=== PATIENT | male | born 1945 | race Caucasian/White ===

== ENCOUNTER → 2018-04-27 | Outpatient (CLI) | payer MEDICARE ==
--- NOTE | 2018-04-27 09:09 | US ---
EXAMINATION TYPE: US duplex aorta DATE OF EXAM: 04/27/2018 COMPARISON: NONE CLINICAL HISTORY: Z13.6 SCREEN FOR CARDIOVASCULAR DISORDER. Pt states screening, has no complaints at this time EXAM MEASUREMENTS: Abdominal Aorta: Proximal: 2.2 x 2.3 cm Mid: 1.9 x 2.1 cm Distal: 2.4 x 2.1 cm Bifurcation: TYLER: 1.0 x 1.1 cm YANELIS: 1.1 x 1.0 cm Ectatic, upper limits of normal for measurements without evidence of AAA/ Wall calcifications visua lized IMPRESSION: 1. Distal abdominal aorta is ectatic with slightly more prominence in the mid abdominal aorta. Maximu m distal abdominal aorta AP diameter is 2.4 cm
--- NOTE | 2018-04-27 10:20 | US ---
EXAMINATION TYPE: US carotid duplex BILAT DATE OF EXAM: 04/27/2018 COMPARISON: US CLINICAL HISTORY: R09.89 SIGNS INVOLVING THE CIRCULATORY AND RESPITORY SYSTEMS. Pt states no complain ts at this time EXAM MEASUREMENTS: RIGHT: Peak Systolic Velocity (PSV) cm/sec ----- Right CCA: 63.4 ----- Right ICA: 117.4 ----- Right ECA: 308.4 ICA/CCA ratio: 1.9 RIGHT: End Diastole cm/sec ----- Right CCA: 19.7 ----- Right ICA: 42.2 ----- Right ECA: 28.0 LEFT: Peak Systolic Velocity (PSV) cm/sec ----- Left CCA: 101.8 ----- Left ICA: 103.1 ----- Left ECA: 170.7 ICA/CCA ratio: 1.0 LEFT: End Diastole cm/sec ----- Left CCA: 24.1 ----- Left ICA: 39.6 ----- Left ECA: 17.0 VERTEBRALS (direction of flow): Right Vertebral: Antegrade Left Vertebral: Antegrade Rhythm: Arrhythmia Elevated velocities bilateral ECA's, otherwise no significant stenosis seen bilateral ICA's Mild plaquing in some mild intimal thickening is present. IMPRESSION: 1. Internal carotid artery velocities are at the upper limits of normal. Significant flow-limiting st enosis is not evident. Criteria for Assigning % of Stenosis / Diameter reduction (Estimation based on the indirect measurements of the internal carotid artery velocities (ICA PSV). 1. Normal (no stenosis)=ICA PSV < 125 cm/s: ratio < 2.0: ICA EDV<40 cm/s. 2. Less than 50% stenosis=ICA PSV < 125 cm/s: ratio < 2.0: ICA EDV<40 cm/s. 3. 50 to 69% stenosis=ICA PSV of 125 to 230 cm/s: ration 2.0 ? 4.0: ICA EDV 40-100 cm/s. 4. Greater than 70% stenosis to near occlusion= ICA PSV > 230 cm/s: ratio > 4.0: ICA EDV > 100 cm/s. 5. Near occlusion= ICA PSV velocities may be low or undetectable: variable ratio and ICA EDV. 6. Total occlusion=unable to detect flow.
== END | disposition home or self-care (01) ==
LOC: RADUSWWP 07:36
PROVIDERS: ATTEND Thoracic Surgery (Cardiothoracic Vascular Surgery)
DX: I77.811 Abdominal aortic ectasia (principal); Z13.6 Encounter for screening for cardiovascular disorders; R09.89 Other specified symptoms and signs involving the circulatory and respiratory systems
CPT/HCPCS: 93880; 93979

== ENCOUNTER → 2018-11-15 | Outpatient (CLI) | payer MEDICARE ==
--- NOTE | 2018-11-15 14:06 | US ---
EXAMINATION TYPE: US kidneys/renal and bladder DATE OF EXAM: 11/15/2018 COMPARISON: NONE CLINICAL HISTORY: N18.3 CKD Stage 3. Large body habitus EXAM MEASUREMENTS: Right Kidney: 9.1 x 4.3 x4.9 cm Left Kidney: 9.4 x 4.4 x 4.3 cm Post Void Residual Volume: 20.1 mL Right Kidney: small probable cortical cyst 0.8 x 0.9 x 0.6 cm Left Kidney: small probable cortical cyst 0.6 x 0.6 x 0.7 cm Bladder: wnl Bilateral Jets seen: Yes Normal Post Void Residual: Yes There is no evidence for hydronephrosis at this point in time. No nephrolithiasis is seen. The urina ry bladder is anechoic. Bilateral ureteral jets are seen. IMPRESSION: There are too small to accurately characterize bilateral subcentimeter renal lesions that likely repr esent small cysts. No hydronephrosis or nephrolithiasis.
== END | disposition home or self-care (01) ==
LOC: RADUSWWP 13:14
PROVIDERS: ATTEND Family Medicine
DX: N28.89 Other specified disorders of kidney and ureter (principal); N18.3 Chronic kidney disease, stage 3 (moderate)
CPT/HCPCS: 76770

== ENCOUNTER → 2019-01-11 | Outpatient (CLI) | payer MEDICARE ==
--- NOTE | 2019-01-12 13:51 | US ---
EXAMINATION TYPE: US carotid duplex BILAT DATE OF EXAM: 01/11/2019 COMPARISON: NONE CLINICAL HISTORY: R09.89 Carotid Bruit. EXAM MEASUREMENTS: RIGHT: Peak Systolic Velocity (PSV) cm/sec ----- Right CCA: 74.7 ----- Right ICA: 85.1 ----- Right ECA: 377.3 ICA/CCA ratio: 1.1 RIGHT: End Diastole cm/sec ----- Right CCA: 15.4 ----- Right ICA: 13.6 ----- Right ECA: 27.5 LEFT: Peak Systolic Velocity (PSV) cm/sec ----- Left CCA: 76.4 ----- Left ICA: 77.9 ----- Left ECA: 173.8 ICA/CCA ratio: 1.0 LEFT: End Diastole cm/sec ----- Left CCA: 15.7 ----- Left ICA: 17.9 ----- Left ECA: 11.6 VERTEBRALS (direction of flow): Right Vertebral: Antegrade Left Vertebral: Antegrade Rhythm: Normal Moderate atherosclerotic changes with no significant velocity increases in bilateral ICA's. Bilateral ECA's show velocity increase, worse on right. IMPRESSION: Mild degree of grayscale atheromatous plaquing with no sonographically evident hemodynam ically significant stenosis within either visualized internal or common carotid arterial system. Exte rnal carotid arteries demonstrate stenosis of greater than 70% on the right and 50-69% on the left. Criteria for Assigning % of Stenosis / Diameter reduction (Estimation based on the indirect measurements of the internal carotid artery velocities (ICA PSV). 1. Normal (no stenosis)=ICA PSV < 125 cm/s: ratio < 2.0: ICA EDV<40 cm/s. 2. Less than 50% stenosis=ICA PSV < 125 cm/s: ratio < 2.0: ICA EDV<40 cm/s. 3. 50 to 69% stenosis=ICA PSV of 125 to 230 cm/s: ration 2.0 ? 4.0: ICA EDV 40-100 cm/s. 4. Greater than 70% stenosis to near occlusion= ICA PSV > 230 cm/s: ratio > 4.0: ICA EDV > 100 cm/s. 5. Near occlusion= ICA PSV velocities may be low or undetectable: variable ratio and ICA EDV. 6. Total occlusion=unable to detect flow.
== END | disposition home or self-care (01) ==
LOC: RADUSWWP 16:02
PROVIDERS: ATTEND Family Medicine
DX: I65.23 Occlusion and stenosis of bilateral carotid arteries (principal)
CPT/HCPCS: 93880

== ENCOUNTER → 2019-06-24 | Outpatient (CLI) | payer MEDICARE ==
[2019-06-24 09:55] LABS: Basophils % (A) 0 %; Eosinophils # (A) 0.2 k/uL (0-0.7); Eosinophils % (A) 3 %; HCT 38.2 % (39.0-53.0); HGB 12.7 gm/dL (13.0-17.5); Lymphocytes # (A) 1.9 k/uL (1.0-4.8); Lymphocytes % (A) 26 %; MCH 30.4 pg (25.0-35.0); MCHC 33.4 g/dL (31.0-37.0); MCV 90.9 fL (80.0-100.0); Mean Platelet Volume 6.9; Monocytes # (A) 0.6 k/uL (0-1.0); Monocytes % (A) 8 %; Neutrophils # (A) 4.5 k/uL (1.3-7.7); Neutrophils % (A) 62 %; Platelet Count 279 k/uL (150-450); RDW 12.9 % (11.5-15.5); WBC 7.3 k/uL (3.8-10.6)
[2019-06-24 10:46] LABS: INR 0.9 (<1.2); Partial Thromboplastin Time 25.1 sec (22.0-30.0); Prothrombin Time 10.1 sec (9.0-12.0)
[2019-06-24 18:00] LABS: African American GFR (CKD) 31.3 (60.0-200.0); Anion Gap 5.8 mmol/L (4.00-12.00); Carbon Dioxide 27.2 mmol/L (21.6-31.8); Potassium 5.1 mmol/L (3.5-5.5)
== END | disposition home or self-care (01) ==
LOC: LABWHC1 08:49
PROVIDERS: ATTEND Internal Medicine
DX: R80.9 Proteinuria, unspecified (principal); Z79.01 Long term (current) use of anticoagulants
CPT/HCPCS: 36415; 80051; 82565; 84520; 85025; 85610; 85730; 86850; 86900; 86901

== ENCOUNTER 2019-06-25 07:45 | Day surgery (SDC) | payer MEDICARE ==
[2019-06-25] MEDS ORDERED: ALPRAZolam 0.25 MG TAB PO STA (08:28)
[2019-06-25] MEDS ORDERED: DESMOPRESSIN ACETATE 28 MCG in SODIUM CHLORIDE 0.9% 50 ML IV ONE (08:31)
[2019-06-25 09:33] VITALS: RESP 18
[2019-06-25 11:23] VITALS: TEMP 97.8
[2019-06-25 13:34] VITALS: BP 135/60; PULSE 58
--- NOTE | 2019-06-25 16:29 | CT ---
DATE OF EXAM: 06/25/2019 COMPARISON: NONE CT DLP: 2415 mGycm HISTORY: Renal failure PROCEDURE: Maximal barrier technique was utilized. After informed consent, the skin overlying a suit able path to the right kidney was localized using CT guidance, the skin was prepped and draped. Lido chino was used for local anesthesia. A skin gonzález made with a scalpel. Using CT guidance, a 17-gauge needle was advanced into in position at the lateral and inferior cortex of the right kidney where co axial placement of an 18-gauge needle was used and core biopsy obtained. 4 passes made in total. Hem ostasis was achieved. There was no immediate complication and patient remained in stable condition. Specimen submitted to Pathology. IMPRESSION: Status post CT guided core biopsy of right renal cortex, pathology pending. This procedu re performed by the undersigned.
== END 2019-06-25 15:40 | disposition home or self-care (01) ==
LOC: RADPROMAIN 07:45 → 1SOBS 10:33 → RADPROMAIN 15:40
PROVIDERS: ATTEND Nurse Practitioner Family
DX: I12.9 Hypertensive chronic kidney disease with stage 1 through stage 4 chronic kidney disease, or unspecified chronic kidney disease (principal); N18.3 Chronic kidney disease, stage 3 (moderate); D64.9 Anemia, unspecified; E03.9 Hypothyroidism, unspecified; E78.5 Hyperlipidemia, unspecified; G47.9 Sleep disorder, unspecified; R53.83 Other fatigue; Z87.891 Personal history of nicotine dependence; Z79.82 Long term (current) use of aspirin; Z79.890 Hormone replacement therapy; Z79.899 Other long term (current) drug therapy; Z96.652 Presence of left artificial knee joint; Z96.642 Presence of left artificial hip joint; Z98.49 Cataract extraction status, unspecified eye; Z95.820 Peripheral vascular angioplasty status with implants and grafts
CPT/HCPCS: 86900; 86901; 86850; 36415; 50200; 77012; J2597

== ENCOUNTER → 2020-01-16 | Outpatient (CLI) | payer MEDICARE ==
--- NOTE | 2020-01-16 16:30 | US ---
EXAMINATION TYPE: US carotid duplex BILAT DATE OF EXAM: 01/16/2020 COMPARISON: NONE CLINICAL HISTORY: 74-year-old male I65.29 OCCLUSION AND STENOSIS OF CAROTID ARTERY. Hx elevated ECA v elocities. TECHNIQUE: Carotid duplex ultrasound examination. Indirect Doppler criteria was utilized. FINDINGS: EXAM MEASUREMENTS: RIGHT: Peak Systolic Velocity (PSV) cm/sec ----- Right CCA: 98.5 ----- Right ICA: 114.0 ----- Right ECA: 394.0 ICA/CCA ratio: 1.2 RIGHT: End Diastole cm/sec ----- Right CCA: 12.2 ----- Right ICA: 22.4 ----- Right ECA: 7.2 LEFT: Peak Systolic Velocity (PSV) cm/sec ----- Left CCA: 104.0 ----- Left ICA: 109.0 ----- Left ECA: 249.0 ICA/CCA ratio: 1.0 LEFT: End Diastole cm/sec ----- Left CCA: 14.3 ----- Left ICA: 21.1 ----- Left ECA: 0.0 VERTEBRALS (direction of flow): Right Vertebral: Antegrade Left Vertebral: Antegrade Rhythm: Normal Pack Press Operator notes: No significant stenosis. No wall thickening. Bilateral elevated ECA velocities. Plaque seen in proximal right ECA and left bulb. IMPRESSION: 1. No hemodynamically significant internal carotid artery stenosis on either side. 2. Elevated bilateral ECA velocities suggest narrowing of these vessels. Criteria for Assigning % of Stenosis / Diameter reduction (Estimation based on the indirect measurements of the internal carotid artery velocities (ICA PSV). 1. Normal (no stenosis)=ICA PSV < 125 cm/s: ratio < 2.0: ICA EDV<40 cm/s. 2. Less than 50% stenosis=ICA PSV < 125 cm/s: ratio < 2.0: ICA EDV<40 cm/s. 3. 50 to 69% stenosis=ICA PSV of 125 to 230 cm/s: ration 2.0 ? 4.0: ICA EDV 40-100 cm/s. 4. Greater than 70% stenosis to near occlusion= ICA PSV > 230 cm/s: ratio > 4.0: ICA EDV > 100 cm/s. 5. Near occlusion= ICA PSV velocities may be low or undetectable: variable ratio and ICA EDV. 6. Total occlusion=unable to detect flow.
== END | disposition home or self-care (01) ==
LOC: RADUSWWP 14:27
PROVIDERS: ATTEND Family Medicine
DX: I77.89 Other specified disorders of arteries and arterioles (principal); I65.23 Occlusion and stenosis of bilateral carotid arteries
CPT/HCPCS: 93880

== ENCOUNTER → 2020-09-10 | Outpatient (CLI) | payer MEDICARE ==
--- NOTE | 2020-09-11 07:23 | CT ---
EXAMINATION TYPE: CT lumbar spine wo con DATE OF EXAM: 09/10/2020 5:35 PM COMPARISON: None HISTORY: Spondylosis w/out myelopathy or radiculopathy, lumbar region CT DLP: 1776 mGycm Automated exposure control for dose reduction was used. Unenhanced CT of the lumbar spine was performed. Bone and soft tissue window settings are submitted as well as coronal and sagittal reconstructions. L1-L2: Normal disc space height. No disc herniation protrusion or central stenosis. No facet joint arthropathy. No evidence for foraminal encroachment. Ventral spondylosis. L2-L3: Normal disc space height. No disc herniation protrusion or central stenosis. No facet joint arthropathy. No evidence for foraminal encroachment. Ventral spondylosis. L3-L4: Moderate degenerative disc space narrowing. Posterior disc bulge. Hypertrophy ligamentum flavu m and facet joint arthropathy as well as associated disc bulging resulting in mild central stenosis. Left foraminal encroachment. L4-L5: Mild degenerative disc space narrowing. Posterior disc bulge. Mild effacement ventral thecal s ac. No herniation or central stenosis. No foraminal encroachment. L5-S1: Severe disc desiccation with vacuum disc. Posterior disc bulge. Spondylosis ventrally and dors ally mild in degree. No evidence for central stenosis or lateral recess stenosis. Bilateral foraminal encroachment. IMPRESSION: 1. Multilevel degenerative disc disease. 2. Mild central stenosis at L3-4.
== END | disposition home or self-care (01) ==
LOC: RADCTMAIN 16:46
PROVIDERS: ATTEND Physical Medicine & Rehabilitation
DX: M48.061 Spinal stenosis, lumbar region without neurogenic claudication (principal); M51.36 Other intervertebral disc degeneration, lumbar region
CPT/HCPCS: 72131

== ENCOUNTER → 2020-11-26 | Outpatient (CLI) | payer MEDICARE ==
--- NOTE | 2020-11-26 13:38 | US ---
EXAMINATION TYPE: US venous doppler duplex LE LT DATE OF EXAM: 11/26/2020 1:25 PM COMPARISON: NONE CLINICAL HISTORY: R22.40 SWELLING, MASS AND LUMP LOWER LIMB. Left medial n=ankle swelling with skin r edness; prior left leg artery bypass graft/stents SIDE PERFORMED: Left TECHNIQUE: The lower extremity deep venous system is examined utilizing real time linear array sonog sal with graded compression, doppler sonography and color-flow sonography. VESSELS IMAGED: Common Femoral Vein Deep Femoral Vein Greater Saphenous Vein * Femoral Vein Popliteal Vein Small Saphenous Vein * Proximal Calf Veins (* superficial vessels) Left Leg: Negative for DVT. Ankle edema channels are noted at patient's area of swelling. IMPRESSION: No evidence for DVT.
== END | disposition home or self-care (01) ==
LOC: RADUSWWP 12:51
PROVIDERS: ATTEND Family Medicine
DX: R22.42 Localized swelling, mass and lump, left lower limb (principal)

== ENCOUNTER → 2021-04-08 | Outpatient (CLI) | payer MEDICARE ==
--- NOTE | 2021-04-08 14:18 | CTL ---
EXAMINATION TYPE: CT Low Dose Lung DATE OF EXAM ORDERED: 04/08/2021 COMPARISON: None HISTORY: . Low Dose CT Lung Screening CT DLP: [address] CTDI: 2.18 mGy IV CONTRAST USED: None. SCREENING VISIT: First visit COMPARISON: None. TECHNIQUE: Low dose computed tomography scan was performed through the chest at 1 millimeter thick se ctions and reconstructed images in the coronal plane at [address] DIAGNOSTIC QUALITY: Satisfactory FINDINGS: LUNG NODULES: Not presentLeft lung: no nodules identified.Right lung: no nodules identified. LUNGS: COPD: Severity: None Fibrosis: Severity:None Lymph nodes: None Other findings: None RIGHT PLEURAL SPACE: Effusion: None Calcification: None Thickening: None Pneumothorax: None LEFT PLEURAL SPACE: Effusion: None Calcification: None Thickening: None Pneumothorax: None HEART: Heart Size: Mildly enlarged Coronary calcification: Mild Pericardial effusion: None OTHER FINDINGS: Upper abdomen: No significant abnormality Bony thorax: Degenerative changes Supraclavicular region: No significant abnormalityOther: No significant abnormalityI IMPRESSION: No discrete nodules seen. FOLLOW UP CT CHEST RECOMMENDATION: Follow-up screening in one year CT LUNG RAD: LUNG RAD CATEGORY 1 negative
== END | disposition home or self-care (01) ==
LOC: RADCTMAIN 13:34
PROVIDERS: ATTEND Family Medicine
DX: Z12.2 Encounter for screening for malignant neoplasm of respiratory organs (principal); Z87.891 Personal history of nicotine dependence
CPT/HCPCS: 71271

== ENCOUNTER → 2021-04-19 | Outpatient (CLI) | payer MEDICARE ==
--- NOTE | 2021-04-19 13:59 | US ---
EXAMINATION TYPE: US carotid duplex BILAT DATE OF EXAM: 04/19/2021 COMPARISON: NONE CLINICAL HISTORY: 75-year-old male I65.29 Occlusion and stenosis of unspecified carotid. High blood p ressure. High cholesterol. Former smoker. TECHNIQUE: Carotid duplex ultrasound examination. Indirect Doppler criteria was utilized. FINDINGS: EXAM MEASUREMENTS: RIGHT: Peak Systolic Velocity (PSV) cm/sec ----- Right CCA: 71.0 ----- Right ICA: 90.1 ----- Right ECA: 401.6 ICA/CCA ratio: 1.3 RIGHT: End Diastole cm/sec ----- Right CCA: 10.6 ----- Right ICA: 18.9 ----- Right ECA: 13.5 LEFT: Peak Systolic Velocity (PSV) cm/sec ----- Left CCA: 75.4 ----- Left ICA: 90.3 ----- Left ECA: 197.6 ICA/CCA ratio: 1.2 LEFT: End Diastole cm/sec ----- Left CCA: 10.6 ----- Left ICA: 17.6 ----- Left ECA: 16.4 VERTEBRALS (direction of flow): Right Vertebral: Antegrade Left Vertebral: Antegrade Rhythm: Arrhythmia Business Technology Analyst notes: Large amount of visual plaque in bilateral bulbs. Bilateral increased velocities i n the ECA. Right > Left. IMPRESSION: 1. Prominent atherosclerotic change of the bilateral carotid bifurcations. However, no hemodynamicall y significant ICA stenosis on either side by Doppler criteria. 2. Increased velocities within the right greater than left external carotid arteries suggests proxim al ECA stenoses. Criteria for Assigning % of Stenosis / Diameter reduction (Estimation based on the indirect measurements of the internal carotid artery velocities (ICA PSV). 1. Normal (no stenosis)=ICA PSV < 125 cm/s: ratio < 2.0: ICA EDV<40 cm/s. 2. Less than 50% stenosis=ICA PSV < 125 cm/s: ratio < 2.0: ICA EDV<40 cm/s. 3. 50 to 69% stenosis=ICA PSV of 125 to 230 cm/s: ration 2.0 ? 4.0: ICA EDV 40-100 cm/s. 4. Greater than 70% stenosis to near occlusion= ICA PSV > 230 cm/s: ratio > 4.0: ICA EDV > 100 cm/s. 5. Near occlusion= ICA PSV velocities may be low or undetectable: variable ratio and ICA EDV. 6. Total occlusion=unable to detect flow.
== END | disposition home or self-care (01) ==
LOC: RADUSWWP 10:36
PROVIDERS: ATTEND Family Medicine
DX: I65.23 Occlusion and stenosis of bilateral carotid arteries (principal); R03.0 Elevated blood-pressure reading, without diagnosis of hypertension; E78.00 Pure hypercholesterolemia, unspecified; Z87.891 Personal history of nicotine dependence
CPT/HCPCS: 93880

== ENCOUNTER → 2023-03-30 | Outpatient (CLI) | payer MEDICARE ==
--- NOTE | 2023-03-30 16:10 | US ---
EXAMINATION TYPE: US carotid duplex BILAT DATE OF EXAM: 03/30/2023 COMPARISON: NONE CLINICAL INDICATION: Male, 77 years old with history of R09.89 OTH SYMPTOMS AND SIGNS INVOLVING THE C IRC A; follow up, carotid bruit TECHNIQUE: Carotid duplex ultrasound examination. Indirect Doppler criteria was utilized. FINDINGS: EXAM MEASUREMENTS: RIGHT: Peak Systolic Velocity (PSV) cm/sec ----- Right CCA: 80.8 ----- Right ICA: 107.3 ----- Right ECA: 156.8 ICA/CCA ratio: 1.3 RIGHT: End Diastole cm/sec ----- Right CCA: 24.1 ----- Right ICA: 20.4 ----- Right ECA: 0.0 LEFT: Peak Systolic Velocity (PSV) cm/sec ----- Left CCA: 87.5 ----- Left ICA: 96.3 ----- Left ECA: 187.3 ICA/CCA ratio: 1.1 LEFT: End Diastole cm/sec ----- Left CCA: 18.2 ----- Left ICA: 23.7 ----- Left ECA: 3.7 VERTEBRALS (direction of flow): Right Vertebral: Antegrade Left Vertebral: Antegrade Rhythm: Normal VOCATIONAL TRAINING TEACHER NOTES: Mild atherosclerotic IMPRESSION: Less than 50% stenosis of the bilateral carotid bifurcations. Criteria for Assigning % of Stenosis / Diameter reduction (Estimation based on the indirect measurements of the internal carotid artery velocities (ICA PSV). 1. Normal (no stenosis)=ICA PSV < 125 cm/s: ratio < 2.0: ICA EDV<40 cm/s. 2. Less than 50% stenosis=ICA PSV < 125 cm/s: ratio < 2.0: ICA EDV<40 cm/s. 3. 50 to 69% stenosis=ICA PSV of 125 to 230 cm/s: ration 2.0 ? 4.0: ICA EDV 40-100 cm/s. 4. Greater than 70% stenosis to near occlusion= ICA PSV > 230 cm/s: ratio > 4.0: ICA EDV > 100 cm/s. 5. Near occlusion= ICA PSV velocities may be low or undetectable: variable ratio and ICA EDV. 6. Total occlusion=unable to detect flow.
== END | disposition home or self-care (01) ==
LOC: RADUSWWP 15:04
PROVIDERS: ATTEND Family Medicine
DX: I65.23 Occlusion and stenosis of bilateral carotid arteries (principal); R09.89 Other specified symptoms and signs involving the circulatory and respiratory systems
CPT/HCPCS: 93880

== ENCOUNTER → 2023-05-10 | Outpatient (CLI) | payer MEDICARE ==
--- NOTE | 2023-05-10 10:30 | CT ---
EXAMINATION TYPE: CT chest wo con DATE OF EXAM: 05/10/2023 COMPARISON: 04/08/2021 HISTORY: Wt loss CT DLP: [address] of the chest was performed with lung and mediastinal window settings submitted. The la ck of contrast limits evaluation of the vascular, mediastinal and parenchymal structures including th e upper abdomen. LUNGS: The lungs are clear and free of infiltrate. No atelectasis. No pulmonary nodule or mass is de tected. No pleural effusion. No CT evidence of interstitial lung disease. MEDIASTINUM/ALFREDO: Thoracic aorta is of normal caliber with limited evaluation given lack of contrast . The heart is not enlarged. No evidence for mediastinal mass. Three-vessel coronary artery calcif ications seen. No lymph nodes greater than 1cm. UPPER ABDOMEN: No significant abnormality is seen. OTHER: No significant other abnormality. IMPRESSION: 1.
== END | disposition home or self-care (01) ==
LOC: RADCTMAIN 09:17
PROVIDERS: ATTEND Family Medicine
DX: R63.4 Abnormal weight loss (principal)
CPT/HCPCS: 71250

== ENCOUNTER → 2023-05-15 | Outpatient (CLI) | payer MEDICARE | END | disposition home or self-care (01) | LOC: LABPRL 12:05 | PROVIDERS: ATTEND Family Medicine | DX: D64.9 Anemia, unspecified (principal) | CPT/HCPCS: 82272 ==